=== PATIENT | female | born 1980 | race Caucasian/White ===

== ENCOUNTER → 2023-06-23 11:26 | Outpatient (REF) | payer BC, SELFPAY | LOC: HWWDC 11:26 | PROVIDERS: ATTENDING PHYSICIAN Obstetrics & Gynecology Gynecology; FAMILY PHYSICIAN Physician Assistant Medical | DX: Z12.31 Encounter for screening mammogram for malignant neoplasm of breast (principal) | CPT/HCPCS: 77063; 77067 ==

== ENCOUNTER → 2024-10-29 11:24 | Outpatient (REF) | payer BC, SELFPAY | LOC: HWWDC 11:24 | PROVIDERS: ATTENDING PHYSICIAN Obstetrics & Gynecology Gynecology; FAMILY PHYSICIAN Physician Assistant Medical | DX: Z12.31 Encounter for screening mammogram for malignant neoplasm of breast (principal) | CPT/HCPCS: 77063; 77067 ==